=== PATIENT | female | born 1945 | race Hispanic/Latino ===

== ENCOUNTER → 2019-11-24 | Outpatient (CLI) | payer OTHER | END | disposition home or self-care (01) | LOC: RAH 14:13 | PROVIDERS: ATTEND Internal Medicine | DX: M25.511 Pain in right shoulder (principal); M25.411 Effusion, right shoulder; M47.816 Spondylosis without myelopathy or radiculopathy, lumbar region | CPT/HCPCS: 71046; 73030 ==

== ENCOUNTER → 2020-02-09 | Outpatient (CLI) | payer OTHER | END | disposition home or self-care (01) | LOC: RAH 08:37 | PROVIDERS: ATTEND Internal Medicine | DX: M75.51 Bursitis of right shoulder (principal) | CPT/HCPCS: 73221 ==

== ENCOUNTER 2020-06-22 07:27 | Day surgery (SDC) | payer OTHER ==
[2020-06-20 14:40] VITALS: BP 142/70
[2020-06-20 16:23] LABS: BASOPHILS % (AUTO) 0.7 % (0.0-5.0); EOSINOPHILS % (AUTO) 2.9 % (0.0-8.0); HEMATOCRIT 38.5 % (36-48); LYMPHOCYTES % (AUTO) 27.2 % (21.0-51.0); MEAN CORPUSCULAR HEMOGLOBIN 30.3 pg (27.0-33.0); MEAN CORPUSCULAR HGB CONC 32.5 g/dL (32.0-36.0); MEAN CORPUSCULAR VOLUME 93.4 fL (79-99); MONOCYTES % (AUTO) 9.2 % (3.0-13.0); NEUTROPHILS % (AUTO) 59.6 % (40.0-77.0); PLATELET COUNT (AUTO) 285 K/uL (130-400); RED BLOOD CELL COUNT(AUTO) 4.12 MIL/uL (4.00-5.50); RED CELL DISTRIBUTION WIDTH 13.8 % (11.0-15.5); WHITE BLOOD COUNT (AUTO) 9.4 K/uL (4.8-10.8)
[2020-06-20 16:29] LABS: POTASSIUM 3.7 mmol/L (3.5-5.1)
[2020-06-21 16:23] VITALS: BP 140/79
--- NOTE | 2020-06-21 17:13 | NUR ---
EKG DR. STEARNS NOTIFIED OF ABNORMAL EKG. NO NEW ORDERS RECEIVED. OK TO PROCEED WITH SCHEDULED PROCEDURE.
[2020-06-22] VITALS (21 sets, daily range): BP systolic 13–159; BP diastolic 56–78
[~2020-06-22] VITALS: Ht 161.3 cm; Wt 74.7 kg
[~2020-06-22 07:27] MED LIST: AMLO-258 PO; CEFAZOLIN SODIUM 1 GM VIAL IVP SCH; GLIM1TAB18 PO; LABE100T5 PO; LACTATED RINGERS 1000ML 1,000 ML IV SCH; OLME1TAB9 PO; ROSU10TA28 PO; SITA1TAB6 PO; SOLI5TAB6 PO; VITAMIN D PO
[2020-06-22] MEDS ORDERED: SODIUM CHLORIDE 0.9% 1000ML 1,000 ML IV ONE (08:29)
[2020-06-22] MEDS ORDERED: SUCCINYLCHOLINE CHLORIDE 20 MG/ML 10 ML VIAL ONE (09:43)
[2020-06-22] MEDS ORDERED: ONDANSETRON HCL 4 MG/2 ML VIAL ONE (09:43)
[2020-06-22] MEDS ORDERED: DEXAMETHASONE SOD PHOSPHATE 10MG/ML 1ML VIAL ONE (09:43)
[2020-06-22] MEDS ORDERED: LIDOCAINE PF 2% 5ML ABBOJECT ONE (09:43)
[2020-06-22] MEDS ORDERED: GLYCOPYRROLATE 1 MG/5 ML SYRINGE ONE (09:44)
[2020-06-22] MEDS ORDERED: PROPOFOL 10 MG/ML 20ML VIAL IV ONE (09:44)
[2020-06-22] MEDS ORDERED: NEOSTIGMINE 5MG/5ML SYR IV ONE (09:44)
[2020-06-22] MEDS ORDERED: FENTANYL CITRATE PF 50 MCG/1 ML 2ML VIAL ONE (09:44)
[2020-06-22] MEDS ORDERED: MIDAZOLAM HCL 1 MG/ML 2ML VIAL ONE (09:44)
[2020-06-22] MEDS ORDERED: MEPERIDINE-PF 25 MG/ML SYG ONE (09:48)
[2020-06-22] MEDS ORDERED: ROPIVACAINE 0.5% 5MG/ML 30ML IJ ONE (09:48)
[2020-06-22] MEDS ORDERED: ROCURONIUM 10MG/1ML SYR 10 MG/ML ML ONE (09:49)
[2020-06-22] MEDS ORDERED: KETOROLAC TROMETHAMINE 30MG/ML ONE (13:05)
[2020-06-22] MEDS ORDERED: NALOXONE HCL 0.4 MG/1 ML ML ONE (13:28)
[2020-06-22] MEDS ORDERED: IPRATROPIUM/ALBUTEROL SULFATE 3 ML SOLUTION IH ONE (15:38)
--- NOTE | 2020-06-22 16:00 | NUR ---
urinary elimination: ambulated to bathroom and voided qs clear yellow urine. assisted back to stretcher at sitting position.
--- NOTE | 2020-06-22 16:40 | NUR ---
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 pt with o2 at 93-94% in room air after ambulation. ok to dismiss home
[2020-06-22] MEDS ORDERED: IPRATROPIUM/ALBUTEROL SULFATE 3 ML SOLUTION IH SCH (16:45)
== END 2020-06-22 16:55 | disposition home or self-care (01) ==
LOC: DAH 07:27
PROVIDERS: ATTEND Orthopaedic Surgery
DX: M75.121 Complete rotator cuff tear or rupture of right shoulder, not specified as traumatic (principal); M94.211 Chondromalacia, right shoulder; I10 Essential (primary) hypertension; E78.00 Pure hypercholesterolemia, unspecified; E11.9 Type 2 diabetes mellitus without complications; M65.811 Other synovitis and tenosynovitis, right shoulder; Z79.899 Other long term (current) drug therapy; Z20.828 Contact with and (suspected) exposure to other viral communicable diseases
CPT/HCPCS: 29827; 36415; 64415; 76942; 80048; 82948 ×2; 85025; 93005; 94640; A4215; A4221; A4222; A4223; A4452; A4565; A4600; A4649 ×5; A4663; A6260; C1713; C9803; J0330; J1100; J1885; J2001; J2175; J2250; J2310; J2405; J2704; J2710; J2795; J3010; J3490; J7030 ×3; U0003; J0690

== ENCOUNTER → 2020-08-28 | Outpatient (CLI) | payer MEDICARE ==
[~2020-08-28] MED LIST changes: -CEFAZOLIN SODIUM 1 GM VIAL IVP SCH; -LACTATED RINGERS 1000ML 1,000 ML IV SCH
== END | disposition home or self-care (01) ==
LOC: RAH 15:25
PROVIDERS: ATTEND Internal Medicine
DX: M19.072 Primary osteoarthritis, left ankle and foot (principal); M77.32 Calcaneal spur, left foot
CPT/HCPCS: 73610; 73630

== ENCOUNTER → 2020-11-07 | Outpatient (CLI) | payer MEDICARE | END | disposition home or self-care (01) | LOC: RAH 12:35 | PROVIDERS: ATTEND Nurse Practitioner Family | DX: M16.12 Unilateral primary osteoarthritis, left hip (principal); M85.88 Other specified disorders of bone density and structure, other site | CPT/HCPCS: 73502 ==

== ENCOUNTER → 2020-11-10 | Outpatient (CLI) | payer MEDICARE | END | disposition home or self-care (01) | LOC: RAH 11:31 | PROVIDERS: ATTEND Internal Medicine | DX: M79.89 Other specified soft tissue disorders (principal); M25.572 Pain in left ankle and joints of left foot; M54.5 Low back pain; M25.561 Pain in right knee; M25.552 Pain in left hip | CPT/HCPCS: 72100; 73610 ==

== ENCOUNTER → 2023-09-01 | Outpatient (CLI) | payer MEDICARE ==
[~2023-09-01] MED LIST changes: -LABE100T5 PO; +LABE100T7 PO; +OLME-39 PO; -OLME1TAB9 PO
== END | disposition home or self-care (01) ==
LOC: RAH 10:32
PROVIDERS: ATTEND Nurse Practitioner Family
DX: M77.31 Calcaneal spur, right foot (principal); M19.071 Primary osteoarthritis, right ankle and foot; M19.012 Primary osteoarthritis, left shoulder; M47.812 Spondylosis without myelopathy or radiculopathy, cervical region; I70.0 Atherosclerosis of aorta; M54.2 Cervicalgia; R07.81 Pleurodynia
CPT/HCPCS: 71100; 72040; 73000; 73030; 73630; 82948